=== PATIENT | female | born 1975 | race Caucasian/White ===

== ENCOUNTER 2020-07-28 16:29 | Emergency (ER) | payer BC, OTHER ==
[2020-07-28 18:03] LABS: HEMOGLOBIN 14.6 gm/dl (12.3-15.3); RED BLOOD COUNT 4.15 M/UL (4.00-5.10); WHITE BLOOD COUNT 8.3 K/UL (4.5-11.0)
[2020-07-28 18:41] LABS: BUN/CREATININE RATIO 14 (0-10)
[2020-07-28] MEDS ORDERED: OMEPRAZOLE20 M1 PO (20:32)
== END 2020-07-28 21:30 | disposition home or self-care (01) ==
LOC: ER1 16:29
PROVIDERS: Family Medicine
DX: R07.89 Other chest pain (principal); E78.5 Hyperlipidemia, unspecified; F17.200 Nicotine dependence, unspecified, uncomplicated; Z90.49 Acquired absence of other specified parts of digestive tract; Z88.8 Allergy status to other drugs, medicaments and biological substances
CPT/HCPCS: 71045; 80053; 82150; 82550; 82553; 83690; 83874; 84484; 85025; 85379; 93005; 96374; 99285; C9113

== ENCOUNTER 2021-11-14 13:00 | Emergency (ER) | payer BC ==
[~2021-11-14 13:00] MED LIST: OMEPRAZOLE20 M1 PO
[2021-11-14 13:33] LABS: RED BLOOD COUNT 4.03 M/UL (4.00-5.10); WHITE BLOOD COUNT 5.9 K/UL (4.5-11.0)
[2021-11-14 14:22] LABS: BUN/CREATININE RATIO 12 (0-10)
[2021-11-14] MEDS ORDERED: PROTONIX20 MG PO (16:29)
== END 2021-11-14 16:50 | disposition home or self-care (01) ==
LOC: ER1 13:00
DX: R07.89 Other chest pain (principal); I10 Essential (primary) hypertension
CPT/HCPCS: 71045; 80053; 82550; 82553; 84484; 85025; 93005; 96374; 99285; C9113; J7030